=== PATIENT | female | born 1975 ===

== ENCOUNTER 2017-07-07 17:58 | Emergency (ER) | payer OTHER ==
[2017-07-07 17:58] VITALS: BMI 26.6
[2017-07-07 18:10] VITALS: RESP 16; TEMP 98.5; O2SAT 99
[2017-07-07] MEDS ORDERED: Alum-Mag Hydrox-Simethicone Susp (30 mL) PO STA (19:27)
--- NOTE | 2017-07-07 19:49 | ED PDOC ---
HPI: Abdomen Time Seen by Provider: 07/07/17 18:33 Chief Complaint (Nursing): Abdominal Pain Chief Complaint (Provider): epigastric abdominal pain, nausea, vomiting History Per: Patient History/Exam Limitations: no limitations Onset/Duration Of Symptoms: Hrs (15) Outside of [place] travel?: No Current Symptoms Are (Timing): Still Present Severity: Moderate Pain Scale Rating Of: 6 Location Of Pain/Discomfort: Epigastric Quality Of Discomfort: Sharp, Burning Associated Symptoms: Nausea, Vomiting, Loss Of Appetite. denies: Fever, Chills , Back Pain, Chest Pain, Constipation, Urinary Symptoms Exacerbating Factors: None Alleviating Factors: None Additional Complaint(s): PT reports epigastric pain for 15 hours with nausea and vomiting. Pt denies similar in the past. Pt states there is no blood in the vomited. No fever/ chills. Past Medical History Reviewed: Historical Data, Nursing Documentation, Vital Signs Vital Signs: Last Vital Signs Temp 98.5 F 07/07/17 18:08 Pulse 93 H 07/07/17 18:08 Resp 16 07/07/17 18:08 BP 122/70 07/07/17 18:08 Pulse Ox 99 07/07/17 18:08 - Medical History PMH: Depression, Seizures Denies: Chronic Kidney Disease - Surgical History Surgical History: No Surg Hx - Family History Family History: States: No Known Family Hx - Living Arrangements Living Arrangements: With Family - Social History Current smoker - smoking cessation education provided: No - Home Medications Home Medications: Ambulatory Orders Medication Instructions Recorded Thiamine [Vitamin B1 Tab] 100 mg PO TID #90 tab 02/12/16 levETIRAcetam [Keppra] 500 mg PO BID #60 tab 02/12/16 - Allergies Allergies/Adverse Reactions: Allergies Allergy/AdvReac Type Severity Reaction Status Date / Time No Known Allergies Allergy Verified 02/12/16 03:41 Review of Systems ROS Statement: Except As Marked, All Systems Reviewed And Found Negative Constitutional: Negative for: Fever, Chills Physical Exam - Reviewed Nursing Documentation Reviewed: Yes Vital Signs Reviewed: Yes - Physical Exam Appears: Positive for: Well, Non-toxic, No Acute Distress Head Exam: Positive for: ATRAUMATIC, NORMAL INSPECTION, NORMOCEPHALIC Skin: Positive for: Normal Color, Warm, DRY Eye Exam: Positive for: Normal appearance ENT: Positive for: Normal ENT Inspection Neck: Positive for: Normal, Painless ROM Cardiovascular/Chest: Positive for: Regular Rate, Rhythm Respiratory: Positive for: CNT, Normal Breath Sounds Gastrointestinal/Abdominal: Positive for: Bowel Sounds, Soft, Tenderness ( Epigastric ). Negative for: Normal Exam Back: Positive for: Normal Inspection Extremity: Positive for: Normal ROM Neurologic/Psych: Positive for: Alert, Oriented - ECG O2 Sat by Pulse Oximetry: 99 Medical Decision Making Medical Decision Making: Elevated WBC. Endorsed pending US and urine at 2019. Disposition - Clinical Impression Clinical Impression: Abdominal pain - Patient ED Disposition Is Patient to be Admitted: Transfer of Care - Disposition Disposition: Transfer of Care Disposition Time: 20:20 Condition: STABLE
[2017-07-07 19:50] LABS: BASO % 0.2 % (0.0-2.0); EOS % 0.1 % (0.0-4.0); HEMATOCRIT 37.2 % (34.0-47.0); LYMPH # 0.7 K/uL (1.0-4.3); LYMPH % 5.2 % (20.0-40.0); MEAN CELL VOLUME 85.3 fl (81.0-99.0); MEAN CORPUSCULAR HEMOGLOBIN 28.1 pg (27.0-31.0); MEAN CORPUSCULAR HGB CONC 32.9 g/dL (33.0-37.0); MONO # 0.4 K/uL (0.0-0.8); MONO % 3.2 % (0.0-10.0); NEUT # 12.5 K/uL (1.8-7.0); NEUT % 91.3 % (50.0-75.0); NRBC % 0.1 % (0.0-0.0); PLATELET COUNT 330 K/uL (130-400); RED CELL DISTRIBUTION WIDTH 14.3 % (11.5-14.5)
[2017-07-07 19:51] LABS: ALB/GLOB RATIO 1.2 (1.0-2.1); ALKALINE PHOSPHATASE 76 U/L (38-126); ALT/SGPT 39 U/L (9-52); AST/SGOT 28 U/L (14-36); BILIRUBIN,TOTAL 0.6 mg/dl (0.2-1.3); BLOOD UREA NITROGEN 16 mg/dl (7-17); CALCIUM 8.1 mg/dL (8.4-10.2); CARBON DIOXIDE 25 mmol/L (22-30); CHLORIDE 105 mmol/L (98-107); GFR AFRICAN-AMERICAN > 60; GLUCOSE,RANDOM 103 mg/dL (65-105); LIPASE 40 U/L (23-300); POTASSIUM 4.2 MMOL/L (3.6-5.0); SODIUM 138 mmol/l (132-148); TOTAL PROTEIN 7.6 G/DL (6.3-8.2); WHITE BLOOD COUNT 13.7 K/uL (4.8-10.8)
[2017-07-07] MEDS ORDERED: Alum-Mag Hydrox-Simethicone Susp (30 mL) ONE (20:28)
[2017-07-07] MEDS ORDERED: Sodium Chloride 0.9% 1,000 ML IV STA (20:33)
--- NOTE | 2017-07-07 20:35 | ED PDOC ---
- Laboratory Results Result Diagrams: 07/07/17 19:38 07/07/17 19:38 - ECG O2 Sat by Pulse Oximetry: 99 Medical Decision Making Medical Decision Making: Case endorsed to telegraphic typewriter operator from TE[facility] Vargas at pending diagnostic review and re-eval Upon my eval, Pt still complaints of epigastric abdominal pain Medicated with Bentyl PO and IVF started CT IMPRESSION: 1. Normal appendix. 2. Fluid in the colon consistent with diarrhea. 3. Recently ruptured right ovarian cyst or follicle. Disposition - Clinical Impression Clinical Impression: Abdominal pain - POA Present On Arrival: None - Disposition Disposition: Routine/Home Disposition Time: 03:20 Condition: STABLE Forms: [facility] ([place]raqi)
[2017-07-07 21:11] LABS: NEUTROPHIL 88 % (42-75); TOTAL CELLS COUNTED 100
[2017-07-08] MEDS ORDERED: Iohexol 240 (50 ml) PO ONE (00:02)
[2017-07-08] MEDS ORDERED: Iohexol 240 (50 ml) ONE (00:12)
[2017-07-08] MEDS ORDERED: Iohexol 300 100 ML IJ ONE (00:16)
[2017-07-08 03:45] VITALS: BP 100/59; PULSE 76
--- NOTE | 2017-07-08 12:03 | CT ---
PROCEDURE: CT Abdomen and Pelvis with contrast HISTORY: r/o appy COMPARISON: None. TECHNIQUE: Contrast dose: Omnipaque 300, 99 cc Radiation dose: Total exam DLP = 787.27 mGy-cm. This CT exam was performed using one or more of the following dose reduction techniques: Automated exposure control, adjustment of the mA and/or kV according to patient size, and/or use of iterative reconstruction technique. FINDINGS: LOWER THORAX: Unremarkable. LIVER: Unremarkable. No gross lesion or ductal dilatation. GALLBLADDER AND BILE DUCTS: Unremarkable. PANCREAS: Unremarkable. No gross lesion or ductal dilatation. SPLEEN: Unremarkable. ADRENALS: Unremarkable. No mass. KIDNEYS AND URETERS: Unremarkable. No hydronephrosis. No solid mass. VASCULATURE: Unremarkable. No aortic aneurysm. BOWEL: Liquified fecal material seen throughout much of the large bowel suspicious for possible diarrhea. No bowel obstruction appreciate with small bowel and large bowel appearing normal in caliber overall. No mesenteric reaction associate with large small bowel mesenteric. APPENDIX: Normal appendix. PERITONEUM: Unremarkable. No free fluid. No free air. LYMPH NODES: Unremarkable. No enlarged lymph nodes. BLADDER: Unremarkable. REPRODUCTIVE: Unremarkable. BONES: No acute fracture. OTHER FINDINGS: None. IMPRESSION: Illegal by fecal material seen throughout majority of large bowel which may indicate and diarrhea. Clinically correlate. Normal appendix identified. No obstructive uropathy bilaterally. Concordant preliminary report from [facility], 07/08/2017.
--- NOTE | 2017-07-08 12:13 | US ---
HISTORY: abdominal pain, elevated wbc COMPARISON: None. TECHNIQUE: Sonographic evaluation of the right upper quadrant of the abdomen. FINDINGS: LIVER: Measures 14.2 cm in length. Normal echogenicity of the liver parenchyma. No mass. No intrahepatic bile duct dilatation. GALLBLADDER: Unremarkable. No gallstones. COMMON BILE DUCT: Measures 4.6 mm. No stones. No dilatation. PANCREAS: The pancreas identified from the head to the mid body with remainder obscured by overlying gastrointestinal gas. The visualized pancreatic segments appear unremarkable RIGHT KIDNEY: Measures bulbi 1 cm in length. Normal echogenicity. No calculus, mass, or hydronephrosis. AORTA: No aneurysmal dilatation. IVC: Unremarkable. OTHER FINDINGS: None . IMPRESSION: Limited to the pancreas due to overlying gas residual gas with remainder of the examination unremarkable appearing.
== END 2017-07-08 03:45 | disposition home or self-care (01) ==
LOC: H.ER 17:58
DX: N83.291 Other ovarian cyst, right side (principal); D72.829 Elevated white blood cell count, unspecified; F32.9 Major depressive disorder, single episode, unspecified
CPT/HCPCS: 74177; 76705; 80053; 81025; 83690; 85025; 96361; 96374; 96375; 99283; J2270; J2405; J7040; Q9966; Q9967